=== PATIENT | female | born 1950 | race Caucasian/White ===

== ENCOUNTER 2019-02-21 09:31 | Emergency (ER) | payer OTHER, SELFPAY ==
[2019-02-21 09:33] VITALS: BP 155/79; PULSE 95; RESP 18; O2SAT 100; BMI 29.8
--- NOTE | 2019-02-21 09:39 | ED.DIZZY ---
HPI - Dizziness General Chief Complaint: Syncope Stated Complaint: feels like she is going to pass out Time Seen by Provider: 02/21/19 09:32 Source: patient and family Mode of arrival: Ambulatory Limitations: no limitations History of Present Illness HPI Narrative: 68-year-old female nonsmoker with history of vertigo presents with her in the chief complaint of feeling dizzy and lightheaded and near syncopal over the course of the morning. She denies any recent chest pain or shortness of breath. She has had no long distance travel, injury or history of clot. Patient has had no nausea, vomiting or diarrhea and denies any dysuria, frequency or urgency. She has had vertigo in the past and states that in some ways this felt similar and otherwise it felt different. She states that when walking she felt a bit lightheaded and dizzy and 1 time had to sit down because she thought she would pass out. She states that when she laid flat her dizziness worsened on 1 occasion but other times it made no difference. She denies neurologic symptoms such as blurred vision, trouble with speech or focal neurologic findings such as numbness, tingling or weakness. complaint: lightheadedness and near syncope Onset (ago): hour(s) Timing: gradual onset Description: sense of movement, lightheadedness and near-syncope History of similar episodes: Yes History of trauma: No Severity: mild Relieving factors: remaining still Exacerbating factors: movement Related Data Previous Rx's Medication Instructions Recorded meclizine 25 mg PO BID PRN #14 tab 02/21/19 Allergies Allergy/AdvReac Type Severity Reaction Status Date / Time morphine Allergy Verified 02/21/19 09:43 Review of Systems Constitutional Constitutional: Denies chills, Denies fatigue, Denies fever(s), Denies frequent falls, Denies lethargy and Denies weakness Eyes Eyes: Denies change in vision, Denies eye discharge, Denies irritation and Denies loss of vision ENT Ears, Nose, Mouth, and Throat: Denies change in voice, Reports dizziness, Denies neck pain, Denies sore throat and Denies throat swelling Cardiovascular Cardiovascular: Denies chest pain, Denies irregular heart rhythm, Denies lightheadedness, Denies palpitations, Denies dyspnea, Denies dyspnea on exertion and Denies orthopnea Respiratory Respiratory: Denies cough, Denies dyspnea, Denies dyspnea on exertion and Denies wheezing Gastrointestinal Gastrointestinal: Denies abdominal pain, Denies change in bowel habits, Denies diarrhea, Denies nausea and Denies vomiting Genitourinary Genitourinary: Denies hematuria, Denies flank pain, Denies urinary incontinence and Denies urinary urgency Musculoskeletal Musculoskeletal: Denies back pain, Denies muscle weakness, Denies neck pain, Denies numbness and Denies tingling Integumentary/Breasts Skin/Breast: Denies pruritus, Denies erythema, Denies rash and Denies wounds Neurologic Neurologic: Denies behavioral changes, Denies confusion, Reports dizziness, Denies frequent falls, Denies loss of vision, Denies numbness, Denies tingling and Denies weakness Psychiatric Psychiatric: Denies anxiety, Denies behavioral changes, Denies confusion, Denies depression, Denies homicidal ideation and Denies suicidal ideation Endocrine Endocrine: Denies fatigue, Denies flushing and Denies palpitations Hematologic/Lymphatic Hematologic/Lymphatic: Denies easy bruising Allergic/Immunologic Allergic/Immunologic: Denies urticaria, Denies throat swelling and Denies wheezing Patient History Social History Smoking Status: Former smoker Exam Narrative Exam Narrative: GENERAL: [68] year old patient appears stated age. Well-nourished, well-developed patient, in mild distress. HEAD: Atraumatic. Normocephalic. EYES: Pupils equal round and reactive. Extraocular motions intact. No scleral icterus. No injection or drainage. ENT: Nose without bleeding, purulent drainage. Throat without erythema, tonsillar hypertrophy or exudate. Airway patent. NECK: Trachea midline. Non tender CARDIOVASCULAR: Regular rate and rhythm without murmurs, gallops, or rubs. RESPIRATORY: Clear to auscultation. Breath sounds equal bilaterally. No wheezes, rales, or rhonchi. GASTROINTESTINAL: Abdomen soft, non-tender, nondistended. EXTREMITIES: No edema or joint tenderness. BACK: Nontender without deformity or crepitance. No flank tenderness. NEURO: AOx3. SKIN: No rash or erythema of visible areas NIH Stroke Scale 1a. LOC: Patient is alert and keenly responsive (0) 1b. LOC Questions: Patient answers both LOC questions accurately (0) 1c. LOC Commands: Patient performs both tasks correctly (0) 2. Best Gaze: Normal (0) 3. Visual: No visual loss (0) 4. Facial palsy: Normal symmetrical movements (0) 5. Motor arm: No drift (0) 6. Motor leg: No drift (0) 7. Limb ataxia: Absent (0) 8. Sensory: Normal (0) 9. Best language: No aphasia; normal (0) 10. Dysarthria: Normal (0) 11. Extinction and inattention: No abnormality (0) NIHSS: 0 Initial Vital Signs Initial Vital Signs: Vital Signs Pulse Rate 95 H 02/21/19 09:33 Respiratory Rate 18 02/21/19 09:33 Blood Pressure 155/79 H 02/21/19 09:33 Pulse Oximetry 100 02/21/19 09:33 Course Course Course Narrative: Patient feels near complete resolution of symptoms after fluids. She is able to ambulate to the bathroom without difficulty. She has no ongoing symptoms. D-dimer was ordered which was elevated, therefore CT angiogram for PE ordered. Orders Ordered: ED Orders 02/21/19 09:40 XR chest 1V Stat 02/21/19 10:10 B Type Natriuretic Peptide Stat Complete Blood Count AUTO DIFF Stat Comprehensive Metabolic Panel Stat D Dimer Stat Magnesium Stat Troponin & CK Cardiac Panel Stat 02/21/19 10:49 CT angio chest PE protocol Stat Discontinued Medications Sodium Chloride (Normal Saline 0.9%) 1,000 mls @ 1,000 mls/hr IV BOLUS ONE Stop: 02/21/19 10:38 Last Infusion: 02/21/19 11:18 Dose: 0 mls/hr Documented by: Admin: 02/21/19 10:05 Dose: 1,000 mls/hr Documented by: NATALI Vital Signs Vital signs: Vital Signs - 8 hr 02/21/19 11:00 02/21/19 12:00 Pulse Rate 65 82 Respiratory Rate 14 14 Blood Pressure [Right Arm] 112/70 125/69 Pulse Oximetry 100 100 MDM - Dizziness Lab Data Result diagrams: 02/21/19 10:10 02/21/19 10:10 Labs: Lab Results 02/21/19 02/21/19 02/21/19 Range/Units 10:10 10:10 10:10 WBC 7.1 (4.5-11.0) X10^3/uL RBC 4.56 (4.0-5.2) X10^6/uL Hgb 14.4 (12.0-16.0) g/dL Hct 41.1 (36-46) % MCV 90.2 (80-100) fL MCH 31.6 (26-34) PG MCHC 35.0 (30-36) % RDW 13.8 (11.6-14.8) % Plt Count 275 (150-400) X10^3/uL Neut % (Auto) 63.5 (50-75) % Lymph % (Auto) 28.4 (25-40) % [place] % (Auto) 6.3 (3-14) % Eos % (Auto) 1.2 L (2-4) % Baso % (Auto) 0.6 (0-2) % Neut # (Auto) 4500 (4726-7646) /uL Lymph # (Auto) 2000 (8883-9269) /uL [place] # (Auto) 400 (0-900) /uL Eos # (Auto) 100 (0-450) /uL Baso # (Auto) 0 (0-100) /uL D-Dimer 830 H (<230) ng/mL Sodium 142 (137-145) mmol/L Potassium 4.0 (3.4-5.1) mmol/L Chloride 106 (98-107) mmol/L Carbon Dioxide 26 (22-32) mmol/L BUN 16 (7-17) mg/dL Creatinine 0.70 (0.52-1.04) mg/dL Estimated GFR > 60.0 (>60) mL/min BUN/Creatinine Ratio 22.9 H (6-22) Glucose 98 (80-110) mg/dL Calcium 9.6 (8.4-10.2) mg/dL Magnesium 2.2 (1.6-2.3) mg/dL Total Bilirubin 0.4 (0.2-1.3) mg/dL AST 28 (14-36) IU/L ALT 21 (<35) IU/L Alkaline Phosphatase 90 (38-126) U/L Total Creatine Kinase 103 (30-135) U/L CK-MB (CK-2) 0.94 (<2.37) ng/mL CK-MB (CK-2) Rel Index 0.9 L (1.5-5.0) % Troponin I < 0.012 (0.01-0.034) ng/mL B-Natriuretic Peptide < 100 (<100) Total Protein 7.5 (6.3-8.2) g/dL Albumin 4.6 (3.5-5.0) g/dL Globulin 2.9 (1.7-4.1) g/dL Albumin/Globulin Ratio 1.6 (1.0-2.8) Point of Care Testing Glucose POC 85 Urine Dip Bedside Urine Glucose Negative Bedside Urine Bilirubin - Negative Bedside Urine Ketone - Negative Urine Specific [place] 1.010 Bedside Urine Occult Blood - Negative Bedside Urine pH 6.5 Bedside Urine Protein - Negative Bedside Urine Urobilinogen - Negative Bedside Urine Nitrite - Negative Bedside Urine Leukocytes - Negative Esterase Imaging Data CT scan - chest: Radiologist's Impression: [address] [address] [address] Scan Report Signed Patient: Naya Lackey [facility]#: [id number] : 1950Acct:[id number] Age/Sex: 68 / FDate of Service: 02/21/19 Loc: ED Accession Number: [id number] Procedure: CT angio chest PE protocol Ordering Provider: Marshall Zeng D.O. PROCEDURE: CT ANGIO CHEST PE PROTOCOL INDICATIONS: near syncope, palpitations, chest pressure TECHNIQUE: After the administration of intravenous contrast, 2 mm thick sections acquired from the pulmonary apices to the posterior costophrenic angles. 3-dimensional maximum intensity projection (MIP) coronal and sagittal reformats were then acquired through the thorax. For radiation dose reduction, the following was used: automated exposure control, adjustment of mA and/or kV according to patient size. COMPARISON: [facility], CR, XR CHEST 1V, 02/21/2019, 9:47. FINDINGS: Image quality: Excellent. Pulmonary arteries: Pulmonary arteries are normal in size, and demonstrate no intraluminal filling defects to suggest central pulmonary embolism. Lungs and pleura: Mild atelectasis is identified within the bilateral posterior costophrenic angles. No focal consolidation, effusion, or pneumothorax is evident. There is no lung mass. An ovoid nodule versus focal pleural thickening is evident along the anterior aspect of the minor fissure on the right that measures 9 x 6 x 2 mm (image 66, series 4). No additional nodules are present. Mediastinum: Heart size is normal, without pericardial effusion. No mediastinal or hilar adenopathy. Thoracic aorta is normal in caliber and enhancement. Aortic atherosclerosis is present. The Mild wall thickening of the mid to distal esophagus is present. There is a small hiatal hernia. Bones and chest wall: No suspicious bony lesions. Ribs and thoracic spine appear intact throughout. Thyroid gland is mildly prominent in size. No obvious nodules are evident. The thyroid gland is not adequately evaluated on CT. No axillary or supraclavicular adenopathy. Abdomen: The included portions of the upper abdomen demonstrate the liver to be hypodense when compared to the spleen. IMPRESSION: 1. No evidence of pulmonary emboli. 2. Mild atelectasis within the lung bases. No definite pneumonia. 3. Mild prominence of the wall of the esophagus may be related to esophagitis. There is a small hiatal hernia. 4. Pleural thickening versus a small nodule along the inner fissure on the right. A followup CT in 6 months is recommended to reevaluate this structure. 5. Probable hepatic steatosis. Please correlate clinically. Dictated by: Gallo Gardner M.D. on 02/21/2019 at 10:55 Approved by: Gallo Gardner M.D. on 02/21/2019 at 11:04 [facility] Narrative Medical decision making narrative: Multiple etiologies for patient's symptoms considered including: [Inner ear problem versus dehydration versus stroke versus cardiac ischemia versus pulmonary embolism versus other] Patient's symptoms improved or duration of stay with above-stated therapies. Findings and discharge diagnosis discussed with patient/family followed by verbalization of understanding Return precautions discussed with patient/family whom verbalize understanding. Discharge Plan Departure Patient Disposition: Home Clinical Impression: Dizziness, Near syncope Discharge Date/Time: 02/21/19 13:04 Instructions: DI for Dizziness-Nonvertigo Activity Restrictions/Additional Instructions: *You have been diagnosed with [ acute dizziness, lightheadedness. ] *What to do: *Take medications as directed *Follow up with your primary care provider in 2-3 days, call for an appointment. Let them know you were seen in the Emergency Department and that we ask that you be seen in follow up *Return to ER if you should have any new, worsening or concerning symptoms Prescriptions: New meclizine 25 mg tablet 25 mg PO BID PRN (Reason: dizziness) Qty: 14 RF: 0 Referrals: Nikole Deleon MD [Primary Care Provider] -
--- NOTE | 2019-02-21 09:40 | DI.RAD.S_ITS ---
PROCEDURE: XR CHEST 1V INDICATIONS: near syncope TECHNIQUE: One view of the chest was acquired. COMPARISON: [facility], , CHEST 2 VIEW, 12/12/2015, 10:30. FINDINGS: Surgical changes and devices: None. Lungs and pleura: Lungs are clear. No pleural effusions or pneumothorax. Mediastinum: Mediastinal contours appear normal. Heart size is normal. Bones and chest wall: No suspicious bony lesions. Overlying soft tissues appear unremarkable. IMPRESSION: Negative chest. No acute cardiopulmonary process is evident. Dictated by: Gallo Gardner M.D. on 02/21/2019 at 9:08 Approved by: Gallo Gardner M.D. on 02/21/2019 at 9:08
[2019-02-21 09:42] VITALS: TEMP 36.8
[2019-02-21] MEDS: SODIUM CHLORIDE 0.9% 1,000 ML 1000 ML IV (10:05)
[2019-02-21 10:21] VITALS: BP 134/77; BP 138/83; BP 142/77; PULSE 77; PULSE 88
[2019-02-21 10:25] LABS: Add Manual Diff / Slide Review NO; Basophils Absolute Auto 0 /uL (0-100); Basophils Percent Auto 0.6 % (0-2); Eosinophils Absolute Auto 100 /uL (0-450); Eosinophils Percent Auto 1.2 % (2-4); Hematocrit 41.1 % (36-46); Hemoglobin 14.4 g/dL (12.0-16.0); Lymphocytes Absolute Auto 2000 /uL (1100-4500); Lymphocytes Percent Auto 28.4 % (25-40); Mean Corpuscular Hemoglobin 31.6 PG (26-34); Mean Corpuscular Volume 90.2 fL (80-100); Monocytes Absolute Auto 400 /uL (0-900); Monocytes Percent Auto 6.3 % (3-14); Neutrophils Absolute Auto 4500 /uL (1500-7000); Neutrophils Percent Auto 63.5 % (50-75); Platelet Count 275 X10^3/uL (150-400); Red Blood Cell Count 4.56 X10^6/uL (4.0-5.2); Red Cell Distribution Width 13.8 % (11.6-14.8); White Blood Cell Count 7.1 X10^3/uL (4.5-11.0)
[2019-02-21 10:37] LABS: Alanine Aminotransferase 21 IU/L (<35); Albumin 4.6 g/dL (3.5-5.0); Albumin Globulin Ratio 1.6 (1.0-2.8); Alkaline Phosphatase 90 U/L (38-126); Aspartate Aminotransferase 28 IU/L (14-36); BUN Creatinine Ratio 22.9 (6-22); Bilirubin Total 0.4 mg/dL (0.2-1.3); Blood Urea Nitrogen 16 mg/dL (7-17); Calcium 9.6 mg/dL (8.4-10.2); Carbon Dioxide 26 mmol/L (22-32); Chloride 106 mmol/L (98-107); Creatine Kinase 103 U/L (30-135); Estimated Glomerular Filt Rate > 60.0 mL/min (>60); Globulin 2.9 g/dL (1.7-4.1); Glucose 98 mg/dL (80-110); Magnesium 2.2 mg/dL (1.6-2.3); Sodium 142 mmol/L (137-145); Total Protein 7.5 g/dL (6.3-8.2)
[2019-02-21 10:41] LABS: D Dimer 830 ng/mL (<230)
[2019-02-21 10:48] LABS: Troponin I < 0.012 ng/mL (0.01-0.034)
--- NOTE | 2019-02-21 10:49 | DI.CT.S_ITS ---
PROCEDURE: CT ANGIO CHEST PE PROTOCOL INDICATIONS: near syncope, palpitations, chest pressure TECHNIQUE: After the administration of intravenous contrast, 2 mm thick sections acquired from the pulmonary apices to the posterior costophrenic angles. 3-dimensional maximum intensity projection (MIP) coronal and sagittal reformats were then acquired through the thorax. For radiation dose reduction, the following was used: automated exposure control, adjustment of mA and/or kV according to patient size. COMPARISON: [facility], CR, XR CHEST 1V, 02/21/2019, 9:47. FINDINGS: Image quality: Excellent. Pulmonary arteries: Pulmonary arteries are normal in size, and demonstrate no intraluminal filling defects to suggest central pulmonary embolism. Lungs and pleura: Mild atelectasis is identified within the bilateral posterior costophrenic angles. No focal consolidation, effusion, or pneumothorax is evident. There is no lung mass. An ovoid nodule versus focal pleural thickening is evident along the anterior aspect of the minor fissure on the right that measures 9 x 6 x 2 mm (image 66, series 4). No additional nodules are present. Mediastinum: Heart size is normal, without pericardial effusion. No mediastinal or hilar adenopathy. Thoracic aorta is normal in caliber and enhancement. Aortic atherosclerosis is present. The Mild wall thickening of the mid to distal esophagus is present. There is a small hiatal hernia. Bones and chest wall: No suspicious bony lesions. Ribs and thoracic spine appear intact throughout. Thyroid gland is mildly prominent in size. No obvious nodules are evident. The thyroid gland is not adequately evaluated on CT. No axillary or supraclavicular adenopathy. Abdomen: The included portions of the upper abdomen demonstrate the liver to be hypodense when compared to the spleen. IMPRESSION: 1. No evidence of pulmonary emboli. 2. Mild atelectasis within the lung bases. No definite pneumonia. 3. Mild prominence of the wall of the esophagus may be related to esophagitis. There is a small hiatal hernia. 4. Pleural thickening versus a small nodule along the inner fissure on the right. A followup CT in 6 months is recommended to reevaluate this structure. 5. Probable hepatic steatosis. Please correlate clinically. Dictated by: Gallo Gardner M.D. on 02/21/2019 at 10:55 Approved by: Gallo Gardner M.D. on 02/21/2019 at 11:04
[2019-02-21 10:52] LABS: CKMB % Relative Index 0.9 % (1.5-5.0); Creatine Kinase MB 0.94 ng/mL (<2.37); HEMOLYSIS 38 (0-50)
[2019-02-21 10:54] LABS: B Type Natriuretic Peptide < 100 (<100)
[2019-02-21 11:00] VITALS: BP 112/70; PULSE 65; RESP 14; O2SAT 100
[2019-02-21 12:00] VITALS: BP 125/69; PULSE 82; RESP 14; O2SAT 100
== END 2019-02-21 13:04 | disposition home or self-care (01) ==
PROVIDERS: Emergency Provider Emergency Medicine; Family Provider Internal Medicine; PCP Internal Medicine
DX: R42 Dizziness and giddiness (principal); R55 Syncope and collapse; R00.2 Palpitations; R07.89 Other chest pain
CPT/HCPCS: 36415; 71045; 71275; 80053; 81003; 82550; 82553; 82962; 83735; 83880; 84484; 85025; 85379; 93005; 96360; 99285; Q9967

== ENCOUNTER → 2019-08-21 10:37 | Outpatient (CLI) | payer OTHER, SELFPAY ==
--- NOTE | 2019-08-21 | DI.CT.S_ITS ---
PROCEDURE: CT ABDOMEN PELVIS W CON INDICATIONS: Epigastric pain TECHNIQUE: After the administration of oral and intravenous contrast, 5 mm thick sections acquired from the diaphragms to the symphysis. 5 mm thick coronal and sagittal reformats were performed. For radiation dose reduction, the following was used: automated exposure control, adjustment of mA and/or kV according to patient size. COMPARISON: [facility], CT, CT ANGIO CHEST PE PROTOCOL, 02/21/2019, 11:18. FINDINGS: Image quality: Excellent. ABDOMEN: Lung bases: Lung bases are clear. Heart size is normal. Small hiatal hernia. Solid organs: Liver is normal in size and enhancement. There is diffuse hypoattenuation of the liver parenchyma relative to the spleen compatible with hepatic steatosis. Gallbladder is surgically absent. Biliary system is non-dilated. Pancreas enhances normally. Spleen is normal in size and enhancement. No adrenal nodules. Kidneys are normal in size and enhancement, without hydronephrosis. There is a 1.1 cm right inferior pole as well as a 2.0 cm exophytic left inferior pole renal hypodensity both measuring fluid attenuation and compatible with renal cysts. Peritoneum and bowel: Stomach, small bowel, and colon loops are normal in caliber and wall thickness. No free fluid or air. Normal appendix Nodes and vessels: No retroperitoneal or mesenteric adenopathy. Scattered atherosclerotic calcifications of the abdominal aorta and iliac vessels without aneurysmal dilatation. Miscellaneous: No ventral hernias. PELVIS: Genitourinary: Bladder wall thickness is normal for degree of bladder distention. Miscellaneous: No inguinal hernias or adenopathy. Bones: No suspicious bony lesions. No acute vertebral body compression fractures. Multilevel spondylitic changes throughout the imaged spine. IMPRESSION: CT abdomen and pelvis without acute abnormalities. No findings identified to explain patient's symptoms. Diffuse hepatic steatosis. Status post cholecystectomy. Dictated by: Humphrey Garcia M.D. on 08/21/2019 at 14:48 Approved by: Humphrey Garcia M.D. on 08/21/2019 at 15:16
[2019-08-21 11:22] LABS: BUN Creatinine Ratio 16.7 (6-22); Blood Urea Nitrogen 12 mg/dL (7-17); Estimated Glomerular Filt Rate > 60.0 mL/min (>60)
== END ==
PROVIDERS: Family Provider Internal Medicine; PCP Internal Medicine; Referring Provider Internal Medicine; Visit Provider Internal Medicine
DX: R10.13 Epigastric pain (principal); K76.0 Fatty (change of) liver, not elsewhere classified; Z90.49 Acquired absence of other specified parts of digestive tract
CPT/HCPCS: 36415; 74177; 82565; 84520; Q9967

== ENCOUNTER → 2021-06-19 09:19 | Outpatient (CLI) | payer OTHER, SELFPAY ==
[2021-06-19 12:01] LABS: COVID19 -Nasal RAPID Negative (Negative)
== END ==
PROVIDERS: Family Provider Internal Medicine; PCP Internal Medicine; Visit Provider Family Medicine Sleep Medicine
DX: Z20.822 Contact with and (suspected) exposure to COVID-19 (principal)
CPT/HCPCS: 87635; C9803

== ENCOUNTER 2021-06-21 11:59 | Day surgery (SDC) | payer OTHER, SELFPAY ==
[2021-06-21] VITALS (7 sets, daily range): BP systolic 115–132; BP diastolic 58–80; PULSE 75–89; RESP 9–21; TEMP 36.7–36.9; O2SAT 92–98; BMI 29.8
--- NOTE | 2021-06-21 12:28 | PM.PREOP ---
Pre-operative Note COVID-19 COVID-19 status: Negative Interval Note History & Physical reviewed/Exam performed by Physician: Yes Changes to H&P: No ASA Class (for procedural sedation): II
--- NOTE | 2021-06-21 12:29 | PM.OP.COLON ---
Operative Date/Time/Diagnoses Date of procedure: 06/21/21 Pre-op diagnosis: See indication and findings Procedure & Clinicians Study performed: Colonoscopy Indications: Screening colonoscopy Surgeon: Leo Zavaleta Procedure Notes Procedure in detail: After informed consent was obtained the patient was placed in left lateral decubitus position. The video colonoscope was introduced the rectum and slowly advanced cecum. Preparation was good. On slow withdrawal mucosa was carefully examined. The scope was removed. The patient tolerated procedure well. Blood loss none Complications none Sedation mac Findings 1. Completely normal colonoscopy to cecum Naya should have follow-up colonoscopy in 10 years.
[2021-06-21] MEDS: SODIUM CHLORIDE 0.9% 1,000 ML 84 ML IV (12:32)
== END 2021-06-21 14:38 | disposition home or self-care (01) ==
PROVIDERS: Family Provider Internal Medicine; PCP Internal Medicine; Referring Provider Internal Medicine Gastroenterology; Visit Provider Internal Medicine Gastroenterology
PROC: 0DJD8ZZ Inspection of Lower Intestinal Tract, Via Natural or Artificial Opening Endoscopic (ICD-10-PCS; CPT 45378; principal; 2021-06-21 13:00)
DX: Z12.11 Encounter for screening for malignant neoplasm of colon (principal)
CPT/HCPCS: G0121; J2704

== ENCOUNTER → 2021-09-22 15:47 | Outpatient (CLI) | payer OTHER, SELFPAY ==
[2021-09-22 18:26] LABS: Hematocrit 40.8 % (36-46); Hemoglobin 14.1 g/dL (12.0-16.0); Mean Corpuscular HGB Conc 34.6 % (30-36); Mean Corpuscular Hemoglobin 31.7 PG (26-34); Mean Corpuscular Volume 91.7 fL (80-100); Platelet Count 247 X10^3/uL (150-400); Red Blood Cell Count 4.44 X10^6/uL (4.0-5.2); Red Cell Distribution Width 12.8 % (11.6-14.8); White Blood Cell Count 7.4 X10^3/uL (4.5-11.0)
[2021-09-22 18:28] LABS: Alanine Aminotransferase 21 IU/L (<35); Albumin 4.2 g/dL (3.5-5.0); Albumin Globulin Ratio 1.4 (1.0-2.8); Alkaline Phosphatase 91 U/L (38-126); Aspartate Aminotransferase 21 IU/L (14-36); BUN Creatinine Ratio 20.7 (6-22); Bilirubin Total 0.4 mg/dL (0.2-1.3); Blood Urea Nitrogen 17 mg/dL (7-17); Calcium 9.1 mg/dL (8.4-10.2); Carbon Dioxide 27 mmol/L (22-32); Chloride 104 mmol/L (98-107); Cholesterol 198 mg/dL (140-199); Estimated Glomerular Filt Rate > 60 mL/min (>60); Globulin 2.9 g/dL (1.7-4.1); Glucose 76 mg/dL (80-110); HDL Cholesterol 47 mg/dL (40-60); HEMOLYSIS < 15 (0-50); LDL Cholesterol Calculated 111 mg/dL (<100); Potassium 3.7 mmol/L (3.4-5.1); Sodium 142 mmol/L (137-145); Total Protein 7.1 g/dL (6.3-8.2); Triglycerides 202 mg/dL (35-150)
[2021-09-22 19:42] LABS: TSH w/ Reflex to FT4 0.83 uIU/mL (0.47-4.68)
== END ==
PROVIDERS: PCP Internal Medicine; Referring Provider Internal Medicine; Visit Provider Internal Medicine
DX: E78.2 Mixed hyperlipidemia (principal); M15.9 Polyosteoarthritis, unspecified
CPT/HCPCS: 36415; 80053; 80061; 84443; 85027

== ENCOUNTER 2022-08-20 08:47 | Emergency (ER) | payer OTHER, SELFPAY ==
[2022-08-20] VITALS (21 sets, daily range): BP systolic 125–154; BP diastolic 65–74; PULSE 64–86; RESP 13–24; O2SAT 94–100; BMI 30.7
--- NOTE | 2022-08-20 09:14 | ED.NAVMDI ---
HPI - Nausea/Vomiting/Diarrhea General Chief complaint: Nausea/Vomiting/Diarrhea Stated complaint: vertigo/ vomiting T-2 Time Seen by Provider: 08/20/22 09:14 Source: patient, family (), RN notes reviewed and old records reviewed Mode of arrival: Ambulatory Limitations: no limitations History of Present Illness HPI Narrative: This is a 72-year-old female with omeprazole and cholestyramine her only daily medications. Patient has a history of vertigo she states she is been having dizziness or vertigo symptoms for a couple weeks but she states in the last 1-2 days she will have a resolution of the dizziness or vertigo and then started having nausea and vomiting. She states that this is atypical. She states she is never thrown up with her vertigo before. Patient states she would a headache yesterday. She took Advil resolved. She denies any vision changes, no numbness, tingling or weakness. She states she does feel off balance like she is going to bump into things when she has episodes. It seems to be worsened when she moves her head suddenly. She denies chest pain, no shortness of breath, no active nausea or vomiting at this moment. No diarrhea constipation, dysuria urgency or frequency. Patient states she does not take any daily medications for it. She did note that her right ear seems sort of plugged and she had some allergies a couple weeks ago. She has not had any hearing changes. Patient states she takes cholestyramine because she is had her gallbladder removed, omeprazole daily. She is had multiple orthopedic surgeries, prior hysterectomy, cholecystectomy, prior knee surgery, no cardiac interventions. She is scheduled for hamstring repair in a couple weeks. Former tobacco use quit 1975, no alcohol or illicit. Dr. Manuel is her PCP. Related Data Home Medications Medication Instructions Recorded Confirmed cholestyramine (with sugar) 4 gram See Rx Instructions .Route .COMPLEX 06/21/21 09/22/21 powder for susp in a packet omeprazole 40 mg capsule,delayed 40 mg PO DAILY 06/21/21 09/22/21 release nystatin 100,000 unit/gram topical 1 applic topical DAILY PRN 09/22/21 09/22/21 powder (Nystop) Previous Rx's Medication Instructions Recorded meclizine 25 mg chewable tablet 25 mg PO TID #20 tabs 08/20/22 prednisone 10 mg tablets in a dose See Rx Instructions PO .COMPLEX 08/20/22 pack #21 ea Allergies Allergy/AdvReac Type Severity Reaction Status Date / Time morphine Allergy Verified 09/22/21 07:58 Review of Systems Review of Systems ROS Unobtainable: All systems reviewed & are unremarkable except as noted in HPI and below Patient History Medical History Advanced directives, counseling/discussion Endogenous hyperlipidemia GERD (gastroesophageal reflux disease) Hypercholesteremia Medicare annual wellness visit, initial Mixed hyperlipidemia Osteoarthritis Overweight Primary osteoarthritis involving multiple joints Surgical History H/O knee surgery H/O thumb surgery Hx of cholecystectomy Social History Smoking Status: Former smoker Smoking Status: Former smoker alcohol intake frequency: holidays/special occasions only Substance Use Type: does not use Exam Narrative Exam Narrative: GEN: well nourished, well appearing female, alert and oriented x 3, patient appears to be in no acute distress. HEENT: Atraumatic, pupils are equal round reactive to light, extraocular movements are intact, no nystagmus, nares are clear, left TM has scant fluid, no erythema, no bulge. Right TM has fluid TM is opaque, light reflexes intact, no retractions or bulge. No erythema, there is no conjunctival pallor. Throat is clear without any exudates, erythema, tonsillar enlargement or uvular deviation, no facial droop. HEART: Regular rate and rhythm without murmur, clicks, rubs. Pulses are equal in upper and lower extremities LUNGS:Lungs clear to auscultation, no wheezes, rales, crackles, chest moves symmetrically ABD:bowel sounds normal, soft, non-tender, no guarding, rebound, rigidity, no masses noted, no hepatosplenomegaly : No CVA tenderness. MSCL: Non-tender, no muscle atrophy, muscles strength 5/5 upper and lower extremities, full range of motion. NEURO:CN 2-12 intact, sensation normal, finger nose finger test normal, heel melchor test normal, romberg normal SKIN: No rash, erythema or other skin changes noted Initial Vital Signs Initial Vital Signs: Vital Signs Blood Pressure 141/67 H 08/20/22 08:50 Scores NIH Stroke Scale Level of Conciousness: Alert, keenly responsive Ask month/age: Answers both questions correctly. Open/close eyes, close hand: Performs both tasks correctly Best gaze horizontal: Normal Visual dickerson: No visual loss Facial palsy: Normal symetrical movement Left arm drift: No drift for full 10 sec Right arm drift: No drift for full 10 sec Left leg drift: No drift for full 5 sec Right leg drift: No drift for full 5 sec Limb ataxia: Absent Sensory on face/arms/legs: Normal, no sensory loss Best language: No aphasia, normal Dysarthria: Normal Extinction or inattention: No abnormality Total NIH Stroke scale score: 0 Course Orders Ordered: ED Orders 08/20/22 08:55 Complete Blood Count AUTO DIFF Stat Comprehensive Metabolic Panel Stat Lipase Stat Troponin & CK Cardiac Panel Stat 08/20/22 09:34 CT angio head and neck Stat EKG-12 Lead Stat 08/20/22 10:10 Urinalysis and Microscopic Stat Vital Signs Vital signs: Vital Signs - 8 hr 08/20/22 08:53 08/20/22 08:56 08/20/22 09:00 Pulse Rate 73 68 Respiratory Rate 22 21 Blood Pressure 141/67 H 146/67 H Pulse Oximetry 99 100 Oxygen Delivery Method Room Air 08/20/22 09:00 08/20/22 09:15 08/20/22 09:15 Pulse Rate 67 64 Respiratory Rate 13 21 Blood Pressure 140/65 Pulse Oximetry 99 98 Oxygen Delivery Method 08/20/22 09:30 08/20/22 09:30 08/20/22 09:45 Pulse Rate 86 Respiratory Rate 24 Blood Pressure 154/74 H 143/69 H Pulse Oximetry 97 Oxygen Delivery Method 08/20/22 09:45 08/20/22 10:10 08/20/22 10:11 Pulse Rate 73 76 Respiratory Rate 17 Blood Pressure 146/70 H Pulse Oximetry 97 96 Oxygen Delivery Method 08/20/22 10:11 08/20/22 10:15 08/20/22 10:15 Pulse Rate 76 83 Respiratory Rate 16 Blood Pressure 137/71 Pulse Oximetry 99 98 Oxygen Delivery Method 08/20/22 08:50 08/20/22 08:55 08/20/22 10:57 Pulse Rate 68 67 Respiratory Rate Blood Pressure 141/67 H 146/67 H Pulse Oximetry 99 99 Oxygen Delivery Method Room Air Room Air 08/20/22 09:15 08/20/22 09:10 08/20/22 10:30 Pulse Rate 65 66 Respiratory Rate Blood Pressure 140/65 134/70 Pulse Oximetry 100 99 Oxygen Delivery Method Room Air Room Air 08/20/22 10:30 08/20/22 10:45 08/20/22 10:45 Pulse Rate 73 77 Respiratory Rate 15 Blood Pressure 134/71 Pulse Oximetry 99 99 Oxygen Delivery Method 08/20/22 11:00 08/20/22 11:00 08/20/22 11:15 Pulse Rate 70 Respiratory Rate Blood Pressure 132/70 132/70 Pulse Oximetry 96 Oxygen Delivery Method 08/20/22 11:15 08/20/22 11:30 08/20/22 11:30 Pulse Rate 76 70 Respiratory Rate 20 16 Blood Pressure 131/74 Pulse Oximetry 97 99 Oxygen Delivery Method 08/20/22 11:45 08/20/22 11:45 08/20/22 12:00 Pulse Rate 71 Respiratory Rate 17 Blood Pressure 127/71 137/72 Pulse Oximetry 99 Oxygen Delivery Method 08/20/22 12:00 Pulse Rate 75 Respiratory Rate 15 Blood Pressure Pulse Oximetry 97 Oxygen Delivery Method MDM - Nausea/Vomiting/Diarrhea Lab Data 08/20/22 08:55 08/20/22 08:55 Labs: Lab Results 08/20/22 08/20/22 08/20/22 Range/Units 08:55 08:55 08:55 WBC 8.3 (4.5-11.0) X10^3/uL RBC 4.67 (4.0-5.2) X10^6/uL Hgb 14.4 (12.0-16.0) g/dL Hct 42.4 (36-46) % MCV 90.7 (80-100) fL MCH 30.9 (26-34) PG MCHC 34.1 (30-36) % RDW 13.0 (11.6-14.8) % Plt Count 288 (150-400) X10^3/uL Neut % (Auto) 76.3 H (50-75) % Lymph % (Auto) 20.4 L (25-40) % Sharp % (Auto) 2.8 L (3-14) % Eos % (Auto) 0.3 L (2-4) % Baso % (Auto) 0.2 (0-2) % Neut # (Auto) 6300 (6319-9183) /uL Lymph # (Auto) 1700 (2964-9993) /uL Sharp # (Auto) 200 (0-900) /uL Eos # (Auto) 0 (0-450) /uL Baso # (Auto) 0 (0-100) /uL Sodium 141 (137-145) mmol/L Potassium 3.7 (3.4-5.1) mmol/L Chloride 105 (98-107) mmol/L Carbon Dioxide 30 (22-32) mmol/L BUN 17 (7-17) mg/dL Creatinine 0.66 (0.52-1.04) mg/dL Estimated GFR > 60 (>60) mL/min BUN/Creatinine Ratio 25.8 H (6-22) Glucose 109 (80-110) mg/dL Calcium 9.3 (8.4-10.2) mg/dL Total Bilirubin 0.4 (0.2-1.3) mg/dL AST 32 (14-36) IU/L ALT 28 (<35) IU/L Alkaline Phosphatase 104 (38-126) U/L Total Creatine Kinase 131 (30-135) U/L Troponin I < 0.012 (0.01-0.034) ng/mL Total Protein 7.7 (6.3-8.2) g/dL Albumin 4.4 (3.5-5.0) g/dL Globulin 3.3 (1.7-4.1) g/dL Albumin/Globulin Ratio 1.3 (1.0-2.8) Lipase 58 (23-300) U/L Urine Color Urine Appearance Urine pH (4.5-8.0) Ur Specific [place] (1.000-1.035) Urine Protein (Negative) Urine Glucose (UA) (Negative) g/dL Urine Ketones (NEGATIVE) Urine Occult Blood (Negative) Urine Nitrate (Negative) Urine Bilirubin (NEGATIVE) Urine Urobilinogen (0.2) E.U./dL Ur Leukocyte Esterase (NEGATIVE) Urine RBC (0-5/HPF) Urine WBC (0-5/HPF) Ur Squamous Epith Cells (0-5/HPF) Urine Bacteria (None) Ur Culture Indicated? 08/20/22 Range/Units 10:10 WBC (4.5-11.0) X10^3/uL RBC (4.0-5.2) X10^6/uL Hgb (12.0-16.0) g/dL Hct (36-46) % MCV (80-100) fL MCH (26-34) PG MCHC (30-36) % RDW (11.6-14.8) % Plt Count (150-400) X10^3/uL Neut % (Auto) (50-75) % Lymph % (Auto) (25-40) % Sharp % (Auto) (3-14) % Eos % (Auto) (2-4) % Baso % (Auto) (0-2) % Neut # (Auto) (7931-5154) /uL Lymph # (Auto) (2639-0012) /uL Sharp # (Auto) (0-900) /uL Eos # (Auto) (0-450) /uL Baso # (Auto) (0-100) /uL Sodium (137-145) mmol/L Potassium (3.4-5.1) mmol/L Chloride (98-107) mmol/L Carbon Dioxide (22-32) mmol/L BUN (7-17) mg/dL Creatinine (0.52-1.04) mg/dL Estimated GFR (>60) mL/min BUN/Creatinine Ratio (6-22) Glucose (80-110) mg/dL Calcium (8.4-10.2) mg/dL Total Bilirubin (0.2-1.3) mg/dL AST (14-36) IU/L ALT (<35) IU/L Alkaline Phosphatase (38-126) U/L Total Creatine Kinase (30-135) U/L Troponin I (0.01-0.034) ng/mL Total Protein (6.3-8.2) g/dL Albumin (3.5-5.0) g/dL Globulin (1.7-4.1) g/dL Albumin/Globulin Ratio (1.0-2.8) Lipase (23-300) U/L Urine Color Yellow Urine Appearance Clear Urine pH 7.5 (4.5-8.0) Ur Specific [place] <=1.005 (1.000-1.035) Urine Protein Negative (Negative) Urine Glucose (UA) Negative (Negative) g/dL Urine Ketones Negative (NEGATIVE) Urine Occult Blood Negative (Negative) Urine Nitrate Negative (Negative) Urine Bilirubin Negative (NEGATIVE) Urine Urobilinogen 0.2 (0.2) E.U./dL Ur Leukocyte Esterase Negative (NEGATIVE) Urine RBC 0-1/hpf (0-5/HPF) Urine WBC 0-1/hpf (0-5/HPF) Ur Squamous Epith Cells 1-5 /hpf (0-5/HPF) Urine Bacteria Occasional (0-1) (None) Ur Culture Indicated? Cult not indicated Urine Dip Bedside Urine Glucose Negative Bedside Urine Bilirubin - Negative Bedside Urine Ketone - Negative Urine Specific [place] 1.000 Bedside Urine Occult Blood - Negative Bedside Urine pH 7.0 Bedside Urine Protein - Negative Bedside Urine Urobilinogen 0.2 Bedside Urine Nitrite - Negative Bedside Urine Leukocytes - Negative Esterase Imaging Data CTA - brain/neck: Radiologist's Impression: [address] [address] [address] Scan Report Signed Patient: Naya Lackey MR#: [id number] : 1950 Acct:[id number] Age/Sex: 72 / F Date of Service: 08/20/22 Loc: ED Accession Number: [id number] ?? Procedure: CT angio head and neck Ordering Provider: Anne Burns D.O. PROCEDURE:? CT ANGIO HEAD AND NECK ? INDICATIONS:? n/v after vertigo resolves, intermittent ? TECHNIQUE:? Pre-contrast 4.5 mm thick sections acquired from the foramen magnum to the vertex.? After the administration of intravenous contrast, 1 mm thick sections acquired from the aortic arch through the [place].? Post-contrast 4.5 mm thick sections then re-acquired from the foramen magnum to the vertex.? 3-dimensional vajdhfj-bfepvgzcq-pcfsounwlu (MIP) and/or volume rendering reformats were acquired of the central intracranial vasculature and neck separately. For radiation dose reduction, the following was used:? automated exposure control, adjustment of mA and/or kV according to patient size.? ? COMPARISON:? None. ? FINDINGS:? Image quality:? Excellent.? ? BRAIN:? CSF spaces:? Ventricles are normal in size and shape.? Basal cisterns are patent.? No extra-axial fluid collections.? ? Brain:? No midline shift.? No intracranial bleeds or masses.? Tello-white matter interface appears intact.? ? Skull and face:? Calvarium and facial bones appear intact, without suspicious lesions.? Orbits appear normal.? Incidental note is made of hyperostosis frontalis. This is not considered to be pathologic in a woman of this age. ? Sinuses:? Sinuses and mastoids are clear.? ? HEAD CT ANGIOGRAPHY:? Anterior circulation:? Intracranial internal carotid arteries are normal in size and flow.? The flow within the paired anterior cerebral arteries is normal and symmetric.? The flow within the middle cerebral arteries is normal and symmetric.? The anterior communicating artery is seen.? No aneurysms are seen.? ? Posterior circulation:? Visualized portions of the vertebral arteries demonstrate normal caliber, and join to form a normal appearing basilar artery.? Flow within the posterior cerebral arteries is normal and symmetric.? No aneurysms are seen.? ? NECK CT ANGIOGRAPHY:? Carotid system:? The great vessels demonstrate a conventional anatomy as they arise from the aortic arch.? The origins of the common carotid arteries appear patent.? The common carotid arteries demonstrate normal caliber and courses.? The bifurcation regions are both widely patent.? The internal carotid arteries demonstrate normal calibers and courses.? ? Posterior circulation:? The origins of the vertebral arteries both appear widely patent.? The more superior extracranial portions of both vertebral arteries also demonstrate normal courses and calibers.? They join to form a normal appearing basilar artery.? ? Soft tissues:? Visualized neck soft tissues demonstrate no suspicious abnormalities.? The thyroid is somewhat bulky, yet without a telma nodule identified. ? Bones:? No suspicious bony lesions.? Visualized cervical spine appears normally aligned.? Mild cervical spine degenerative changes are seen. ? ? IMPRESSION:? A cause of vertigo is not seen on these images. ? No hemodynamically significant stenosis can be seen within the arteries of the neck or the intracranial arteries. ? Any quantitative measurements of stenosis were performed using NASCET criteria.? ? ? Dictated by: Krish Gomez M.D. on 08/20/2022 at 10:50 ? ? Approved by: Krish Gomez M.D. on 08/20/2022 at 10:52?? ECG Data Attestation: I personally reviewed and interpreted this ECG as follows: Interpretation: Rate of 76 IA 140 QRS of 64 QTC [address]. No acute ST elevation, appears to be sinus rhythm but difficult to see P waves in all leads. MDM Narrative Medical decision making narrative: This is a 72-year-old female with history of intermittent vertigo patient has had symptoms for several weeks she did have some right ear fullness and does have little bit of fluid on the right though no signs of infection so could have labyrinthitis but patient also notes that is has had typical symptoms in the past the reason she presents today is because she started having nausea and vomiting after her vertigo starts to improve in the last day or so. Neuro exam is negative, NIH is 0. Patient's had labs and imaging obtained as she has never had CT angio that I am able to appreciate. CTA is negative. Patient has deferred any additional medications. Discussed with patient there maybe a component of labyrinthitis she had some allergies and then developed some fullness in her right ear she does have fluid on that side, discussed with patient will do a course of steroids, meclizine but she has not tried in the past and she has follow up with ENT. My suspicion for neurologic cause with recurrent symptoms, negative CT angio and NIH of 0 with normal gait is quite low. No other clear cause found for symptoms. Discussed with patient she feels comfortable returning home and has ambulated in the department. Discharge Plan Departure Patient Disposition: Home Clinical Impression: Vertigo Instructions: DI for Vertigo Activity Restrictions/Additional Instructions: Please follow up with ENT at your scheduled appointment. You can try meclizine 1-2 tablets every 8 hours as needed for symptoms. This is available [id number] as [place]. You may have labyrinthitis which can occur from viral infection and affect the inner ear, sometimes steroids can be helpful for this. [facility] [place] Please return for severe headaches, sudden vision changes, passing out, new numbness, tingling or weakness, loss of bowel or bladder control, falling, rapidly worsening symptoms or other new or concerning changes. Prescriptions: New meclizine 25 mg tablet,chewable 25 mg PO TID Qty: 20 0RF prednisone 10 mg tablets,dose pack See Rx Instructions .ROUTE .COMPLEX Qty: 21 0RF Rx Instructions: orally per package directions. Take 6 tablets p.o. x1 day, then 5 tablets p.o. x1 day, then 4 tablets p.o. x1 day, then 3 tablets p.o. x1 day, then 2 tablets p.o. x1 day, then 1 tablet p.o. times No Action nystatin [Nystop] 100,000 unit/gram powder 1 applic topical DAILY PRN omeprazole 40 mg capsule,delayed release(DR/EC) 40 mg PO DAILY cholestyramine (with sugar) 4 gram powder in packet See Rx Instructions .ROUTE .COMPLEX Rx Instructions: diarrhea Referrals: Isaias Manuel MD [Primary Care Provider] - Stand Alone Forms: Patient Portal/API
--- NOTE | 2022-08-20 09:34 | DI.CT.S_ITS ---
PROCEDURE: CT ANGIO HEAD AND NECK INDICATIONS: n/v after vertigo resolves, intermittent TECHNIQUE: Pre-contrast 4.5 mm thick sections acquired from the foramen magnum to the vertex. After the administration of intravenous contrast, 1 mm thick sections acquired from the aortic arch through the [place] of [place]. Post-contrast 4.5 mm thick sections then re-acquired from the foramen magnum to the vertex. 3-dimensional tlbzpbp-zxorlcfsh-qtoshqqswh (MIP) and/or volume rendering reformats were acquired of the central intracranial vasculature and neck separately. For radiation dose reduction, the following was used: automated exposure control, adjustment of mA and/or kV according to patient size. COMPARISON: None. FINDINGS: Image quality: Excellent. BRAIN: CSF spaces: Ventricles are normal in size and shape. Basal cisterns are patent. No extra-axial fluid collections. Brain: No midline shift. No intracranial bleeds or masses. Tello-white matter interface appears intact. Skull and face: Calvarium and facial bones appear intact, without suspicious lesions. Orbits appear normal. Incidental note is made of hyperostosis frontalis. This is not considered to be pathologic in a woman of this age. Sinuses: Sinuses and mastoids are clear. HEAD CT ANGIOGRAPHY: Anterior circulation: Intracranial internal carotid arteries are normal in size and flow. The flow within the paired anterior cerebral arteries is normal and symmetric. The flow within the middle cerebral arteries is normal and symmetric. The anterior communicating artery is seen. No aneurysms are seen. Posterior circulation: Visualized portions of the vertebral arteries demonstrate normal caliber, and join to form a normal appearing basilar artery. Flow within the posterior cerebral arteries is normal and symmetric. No aneurysms are seen. NECK CT ANGIOGRAPHY: Carotid system: The great vessels demonstrate a conventional anatomy as they arise from the aortic arch. The origins of the common carotid arteries appear patent. The common carotid arteries demonstrate normal caliber and courses. The bifurcation regions are both widely patent. The internal carotid arteries demonstrate normal calibers and courses. Posterior circulation: The origins of the vertebral arteries both appear widely patent. The more superior extracranial portions of both vertebral arteries also demonstrate normal courses and calibers. They join to form a normal appearing basilar artery. Soft tissues: Visualized neck soft tissues demonstrate no suspicious abnormalities. The thyroid is somewhat bulky, yet without a telma nodule identified. Bones: No suspicious bony lesions. Visualized cervical spine appears normally aligned. Mild cervical spine degenerative changes are seen. IMPRESSION: A cause of vertigo is not seen on these images. No hemodynamically significant stenosis can be seen within the arteries of the neck or the intracranial arteries. Any quantitative measurements of stenosis were performed using NASCET criteria. Dictated by: Krish Gomez M.D. on 08/20/2022 at 10:50 Approved by: Krish Gomez M.D. on 08/20/2022 at 10:52
[2022-08-20 09:40] LABS: Add Manual Diff / Slide Review NO; Basophils Absolute Auto 0 /uL (0-100); Basophils Percent Auto 0.2 % (0-2); Eosinophils Absolute Auto 0 /uL (0-450); Eosinophils Percent Auto 0.3 % (2-4); Hematocrit 42.4 % (36-46); Hemoglobin 14.4 g/dL (12.0-16.0); Lymphocytes Absolute Auto 1700 /uL (1100-4500); Lymphocytes Percent Auto 20.4 % (25-40); Mean Corpuscular HGB Conc 34.1 % (30-36); Mean Corpuscular Hemoglobin 30.9 PG (26-34); Mean Corpuscular Volume 90.7 fL (80-100); Monocytes Absolute Auto 200 /uL (0-900); Monocytes Percent Auto 2.8 % (3-14); Neutrophils Absolute Auto 6300 /uL (1500-7000); Neutrophils Percent Auto 76.3 % (50-75); Platelet Count 288 X10^3/uL (150-400); Red Blood Cell Count 4.67 X10^6/uL (4.0-5.2); White Blood Cell Count 8.3 X10^3/uL (4.5-11.0)
[2022-08-20 09:55] LABS: Alanine Aminotransferase 28 IU/L (<35); Albumin 4.4 g/dL (3.5-5.0); Albumin Globulin Ratio 1.3 (1.0-2.8); Alkaline Phosphatase 104 U/L (38-126); Aspartate Aminotransferase 32 IU/L (14-36); BUN Creatinine Ratio 25.8 (6-22); Bilirubin Total 0.4 mg/dL (0.2-1.3); Blood Urea Nitrogen 17 mg/dL (7-17); Calcium 9.3 mg/dL (8.4-10.2); Carbon Dioxide 30 mmol/L (22-32); Chloride 105 mmol/L (98-107); Creatine Kinase 131 U/L (30-135); Estimated Glomerular Filt Rate > 60 mL/min (>60); Globulin 3.3 g/dL (1.7-4.1); Glucose 109 mg/dL (80-110); HEMOLYSIS < 15 (0-50); Lipase 58 U/L (23-300); Potassium 3.7 mmol/L (3.4-5.1); Sodium 141 mmol/L (137-145); Total Protein 7.7 g/dL (6.3-8.2)
[2022-08-20 10:06] LABS: Troponin I < 0.012 ng/mL (0.01-0.034)
[2022-08-20 10:25] LABS: Appearance Urine UA CLEAR; Bilirubin Urine UA NEGATIVE (NEGATIVE); Color Urine UA YELLOW; Glucose Urine UA NEGATIVE (Negative); Ketones Urine UA NEGATIVE (NEGATIVE); Leukocyte Esterase Urine UA NEGATIVE (NEGATIVE); Nitrite Urine UA NEGATIVE (Negative); Occult Blood Urine UA NEGATIVE (Negative); Protein Urine UA NEGATIVE (Negative); Specific Gravity Urine UA <=1.005 (1.000-1.035); Urobilinogen Urine UA 0.2 E.U./dL (0.2)
[2022-08-20 10:27] LABS: pH Urine UA 7.5 (4.5-8.0)
[2022-08-20 10:33] LABS: Bacteria Urine Occasional (0-1); Culture Indicated Urine Cult Not Indicated; RBC Urine 0-1/HPF (0-5/HPF); Squamous Epithelial Cell Urine 1-5 /HPF (0-5/HPF); WBC Urine 0-1/HPF (0-5/HPF)
== END 2022-08-20 12:32 | disposition home or self-care (01) ==
PROVIDERS: Emergency Provider Emergency Medicine; PCP Internal Medicine
DX: R42 Dizziness and giddiness (principal); R07.9 Chest pain, unspecified
CPT/HCPCS: 36415; 70496; 70498; 80053; 81001; 81003; 82550; 83690; 84484; 85025; 93005; 99284; 99285; Q9967

== ENCOUNTER → 2022-10-09 10:42 | Outpatient (CLI) | payer OTHER, SELFPAY ==
[2022-10-09 12:43] LABS: Hematocrit 40.1 % (36-46); Hemoglobin 14.1 g/dL (12.0-16.0); Mean Corpuscular Hemoglobin 31.6 PG (26-34); Mean Corpuscular Volume 90.2 fL (80-100); Platelet Count 287 X10^3/uL (150-400); Red Blood Cell Count 4.45 X10^6/uL (4.0-5.2); Red Cell Distribution Width 13.2 % (11.6-14.8)
[2022-10-09 13:07] LABS: BUN Creatinine Ratio 18.9 (6-22); Blood Urea Nitrogen 14 mg/dL (7-17); Calcium 9.5 mg/dL (8.4-10.2); Carbon Dioxide 29 mmol/L (22-32); Chloride 102 mmol/L (98-107); Estimated Glomerular Filt Rate > 60 mL/min (>60); Glucose 82 mg/dL (80-110); HEMOLYSIS < 15 (0-50); Potassium 4.2 mmol/L (3.4-5.1); Sodium 140 mmol/L (137-145)
== END ==
PROVIDERS: PCP Internal Medicine; Referring Provider Internal Medicine; Visit Provider Internal Medicine
DX: E78.2 Mixed hyperlipidemia (principal); M15.9 Polyosteoarthritis, unspecified
CPT/HCPCS: 36415; 80048; 85027

== ENCOUNTER → 2023-06-17 11:17 | Outpatient (CLI) | payer OTHER, SELFPAY ==
--- NOTE | 2023-06-17 11:19 | DI.RAD.S_ITS ---
PROCEDURE: XR DEXA AXIAL SKELETON INDICATIONS: postmenopausal COMPARISON: None. FINDINGS: Lumbar Spine (L4 excluded): Bone mineral density is 0.966 g/cm2, T score -0.5, normal. Left Hip: Bone mineral density is 0.87 g/cm2, T score -1.6, normal. Left Femoral Neck: Bone mineral density 0.725 g/cm2, T score -1.1, osteopenia. Right Hip: Bone mineral density 0.839 g/cm2, T score -0.8, normal. Right Femoral Neck: Bone mineral density 0.687 g/cm2, T score -1.5, osteopenia. Fracture Risk Calculation (when applicable): 10-year fracture risk of a major osteoporotic fracture 10 and of a hip fracture 1.8. (T score greater or equal to -1.0 to: NORMAL) (T score from -1.1 to -2.4: OSTEOPENIA) (T score less than or equal to -2.5: OSTEOPOROSIS) IMPRESSION: Osteopenia Follow-up guidelines as follows: Osteoporosis: Consider a repeat DEXA and Vertebral Fracture Assessment (VFA) exam in 2 years or sooner if medically necessary, to reassess this patient's status. Osteopenia: Consider a repeat DEXA in 2-3 years to reassess this patient's status, or if there is a new clinical indication. Normal: Consider a repeat DEXA in 5 years or sooner, or if there is a new clinical indication. Dictated by: Piotr Gomez M.D. on 06/17/2023 at 14:17 Approved by: Piotr Gomez M.D. on 06/17/2023 at 14:18
== END ==
PROVIDERS: PCP Internal Medicine; Referring Provider Internal Medicine; Visit Provider Internal Medicine
DX: Z13.820 Encounter for screening for osteoporosis (principal); M85.80 Other specified disorders of bone density and structure, unspecified site; Z78.0 Asymptomatic menopausal state
CPT/HCPCS: 77080

== ENCOUNTER → 2023-10-02 10:17 | Outpatient (CLI) | payer OTHER, SELFPAY ==
[2023-10-02 12:33] LABS: Aspartate Aminotransferase 25 IU/L (14-36); Blood Urea Nitrogen 20 mg/dL (7-17); Calcium 9.6 mg/dL (8.4-10.2); Carbon Dioxide 27 mmol/L (22-32); Chloride 104 mmol/L (98-107); Cholesterol 205 mg/dL (140-199); Estimated Glomerular Filt Rate > 60 mL/min (>60); Glucose 80 mg/dL (80-110); HDL Cholesterol 54 mg/dL (40-60); HEMOLYSIS < 15 (0-50); LDL Cholesterol Calculated 113 mg/dL (<100); Potassium 4.5 mmol/L (3.4-5.1); Sodium 139 mmol/L (137-145); Triglycerides 188 mg/dL (35-150)
== END ==
PROVIDERS: PCP Internal Medicine; Referring Provider Internal Medicine; Visit Provider Internal Medicine
DX: E78.2 Mixed hyperlipidemia (principal); M85.80 Other specified disorders of bone density and structure, unspecified site
CPT/HCPCS: 36415; 80048; 80061; 84450